=== PATIENT | male | born 1950 | race Caucasian/White ===

== ENCOUNTER → 2020-01-16 07:42 | Outpatient (CLI) | payer MEDICARE, SELFPAY ==
--- NOTE | ~2020-01-16 | US_ITS ---
EXAMINATION: US aorta [facility] DATE: 01/16/2020 08:07 INDICATION: Abdominal aortic aneurysm screening. TECHNIQUE: Grayscale, color Doppler, and pulsed Doppler images of the aorta and common iliac arteries were obtained. COMPARISON: None. FINDINGS: The aorta is normal in caliber. The right common iliac artery is normal in caliber. The left common i liac artery is normal in caliber. IMPRESSION: 1. No abdominal aortic aneurysm. Reviewed, dictated and finalized at location B. 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
--- NOTE | ~2020-01-16 | CT_ITS ---
EXAMINATION:CT lung screening DATE: 01/16/2020 08:16 INDICATION: Personal history of tobacco dependence. Current smoker with 40 pack year history. TECHNIQUE: Computed tomography (CT) of the chest was performed without intravenous contrast. Automate d exposure control and iterative reconstruction technique were employed. The dose-length product (DLP ) was 217.14 mGy-cm. COMPARISON: None. FINDINGS: There is mild emphysema. There is mild scarring at right lung apex. There is a 4 mm nodule in left upper lobe. No pleural effusion. The heart size is normal. There are coronary artery calcific ations. No pericardial effusion. There is mild thoracic spondylosis. IMPRESSION: 1. Lung-RADS category 2: Benign appearance or behavior. Continue annual screening with noncontrast lo w-dose chest CT in 12 months. Reviewed, dictated and finalized at location B. SCOUT IMPRESSION: 1. Lung-RADS category 2: Benign appearance or behavior. Continue annual screeni ng with noncontrast low-dose chest CT in 12 months.
== END ==
PROVIDERS: PCP Internal Medicine; Visit Provider Internal Medicine
DX: Z12.2 Encounter for screening for malignant neoplasm of respiratory organs (principal); Z87.891 Personal history of nicotine dependence
CPT/HCPCS: 76706; G0297

== ENCOUNTER → 2021-01-20 11:12 | Outpatient (CLI) | payer MEDICARE, SELFPAY ==
--- NOTE | ~2021-01-20 | CT_ITS ---
EXAMINATION:CT lung screening DATE: 01/20/2021 11:27 INDICATION: Personal history of nicotine dependence. Current smoker with 40 pack year history. TECHNIQUE: Computed tomography (CT) of the chest was performed without intravenous contrast. Automate d exposure control and iterative reconstruction technique were employed. The dose-length product (DLP ) was 110.28 mGy-cm. COMPARISON: Chest CT 01/16/2020 FINDINGS: There is mild emphysema. There is mild scarring at the lung apices. There is a 3 mm nodule in right middle lobe. 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 Again seen is a 4 mm nodule in left upper lobe. No pleural effusion. The heart size is normal. There are c oronary artery calcifications. No pericardial effusion. There is mild thoracic spondylosis. IMPRESSION: 1. Lung-RADS category 2: Benign appearance or behavior. Continue annual screening with noncontrast lo w-dose chest CT in 12 months. Reviewed, dictated and finalized at location A. 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 Lung-RADS category 2: Benign appearance or behavior. Continue annual screeni ng with noncontrast low-dose chest CT in 12 months.
== END ==
PROVIDERS: PCP Internal Medicine; Visit Provider Internal Medicine
DX: Z87.891 Personal history of nicotine dependence (principal)
CPT/HCPCS: 71271

== ENCOUNTER 2022-02-02 08:57 | Emergency (ER) | payer MEDICARE, SELFPAY ==
[2022-02-02 09:24] VITALS: BP 116/51; PULSE 60; RESP 20; TEMP 36.4; O2SAT 100
--- NOTE | 2022-02-02 10:06 | ED.URI ---
HPI - URI/Sore Throat General Chief Complaint: Upper Respiratory Infection Stated Complaint: Chest Congestion/Cough Time Seen by Provider: 02/02/22 10:06 Source: patient and RN notes reviewed Mode of arrival: ambulatory Limitations: no limitations History of Present Illness HPI Narrative: 71-year-old male presents with concern for 2 day history of sinus congestion and drainage. Reports he was unable to use his CPAP machine last night because his face was ?plugged up?. He denies fever, aches, chills, sweats, sore throat, cough. Reports he took Flonase with some relief MD elicited complaint: cough and sore throat Related Data Home Medications Medication Instructions Recorded Confirmed aspirin 81 mg tablet,delayed 81 mg PO DAILY 01/09/20 02/02/22 release cetirizine 10 mg tablet (Zyrtec) 10 mg PO DAILY PRN Allergy Symptoms 01/08/21 02/02/22 clonazepam 0.5 mg tablet 0.5 mg PO BID 01/08/21 02/02/22 venlafaxine 75 mg capsule,extended 75 mg PO DAILY 01/08/21 02/02/22 release 24 hr Allergies Allergy/AdvReac Type Severity Reaction Status Date / Time No Known Drug Allergies Allergy Unknown Verified 02/02/22 09:41 Review of Systems Review of Systems: CONSTITUTIONAL: Denies malaise, chills, sweats, or fever. EYES: Denies visual changes, redness, or discharge. ENT: Reports rhinorrhea, congestion. Denies sinus pain, otalgia and sore throat. CARDIOVASCULAR: Denies chest pain, palpitations, or edema. RESPIRATORY: Denies cough. Denies dyspnea. GASTROINTESTINAL: Denies abdominal pain, nausea, vomiting, diarrhea SKIN: Denies rash or itching. MUSCULOSKELETAL: Denies myalgia. NEUROLOGIC: Denies headache. All systems reviewed & are unremarkable except as noted in HPI and below PMFSH Family History Family History Grandparent Family history of heart disease in male family member before age 55 Social History Social History Smoking packs per day: 1 Smoking cigarettes per day: 20.0 Years smoked: 40 Smoking pack-years: 40.00 Smoking status: Current every day smoker (does not want to quit now due to being a difficult time) Tobacco type: cigarettes Second hand tobacco smoke exposure: Yes Alcohol intake: never Substance use: never Substance use type: does not use Comments At time of signature, agree with nursing past medical, surgical, social and family history. There is no relevant family history pertinent to the presenting complaint Exam Narrative: GENERAL: Well-appearing, well-nourished, and in no acute distress. HEAD: Normocephalic EYES: PERRLA, conjunctivae clear ENT: Nares clear, turbinates edematous and erythematous, clear discharge. Mucous membranes moist. TM pearly graves with sharp light reflex bilaterally; no tragal tenderness. Oropharynx not erythematous without lesions. Tonsils not enlarged and without exudate, no drooling, no hoarseness, no trismus, uvula midline. NECK: Supple. No lymphadenopathy CHEST: Clear to auscultation, breath sounds equal. No wheezing, rhonchi, rales, or stridor. No respiratory distress, speaks in full sentences. HEART: Regular rate and rhythm. No murmur heard. SKIN: Warm, dry, no rash. NEURO: Alert and oriented x3. PSYCH: Normal mood and affect Course Course Emergency Course: Patient is aware of diagnosis, understands and agrees to treatment plan. Anticipatory guidance given. Patient agrees to follow-up as directed and is aware of reasons to seek care at the emergency department. Portions of this record may have been created with voice recognition software Level of Care: Express Care Visit Vital Signs Vital signs: Vital Signs Temperature 97.5 F L 02/02/22 09:24 Pulse Rate 60 02/02/22 09:24 Respiratory Rate 20 02/02/22 09:24 Blood Pressure 116/51 L 02/02/22 09:24 Pulse Oximetry 100 02/02/22 09:24 Oxygen Delivery Room Air 02/02/22 09:24
== END 2022-02-02 10:15 | disposition home or self-care (01) ==
PROVIDERS: Emergency Provider Nurse Practitioner
DX: J06.9 Acute upper respiratory infection, unspecified (principal); F17.210 Nicotine dependence, cigarettes, uncomplicated; Z79.82 Long term (current) use of aspirin; G47.30 Sleep apnea, unspecified; E78.00 Pure hypercholesterolemia, unspecified; F41.9 Anxiety disorder, unspecified; F32.A Depression, unspecified
CPT/HCPCS: 87804; 99213; G0463

== ENCOUNTER 2023-01-31 12:07 | Outpatient (CLI) | payer MEDICARE, SELFPAY ==
[2023-01-31 19:42] LABS: Prostate Specific Antigen 12.9 ng/mL (< OR = 4.0)
[2023-01-31 19:52] LABS: Vitamin D 25 Hydroxy 52.1 ng/mL
[2023-01-31 22:08] LABS: Alanine Aminotransferase 27 U/L (6-50); Albumin Level 4.5 g/dL (3.5-5.1); Alkaline Phosphatase 61 U/L (38-126); Anion Gap 7 mmol/L (8-16); Aspartate Amino Transferase 59 U/L (17-59); Bilirubin,Total 0.4 mg/dL (0.2-1.3); Blood Urea Nitrogen 30 mg/dL (9-20); Calcium 9.8 mg/dL (8.4-10.2); Carbon Dioxide 30 mmol/L (22-30); Chloride 101 mmol/L (98-107); Estimated Glomerular Filt Rate 50; Potassium 4.6 mmol/L (3.4-5.0); Sodium 138 mmol/L (137-145)
[2023-01-31 22:56] LABS: Hemoglobin A1C 5.7 % (<5.7)
[2023-02-02 11:02] LABS: Glucose 41 mg/dL (65-110)
== END 2023-01-31 12:08 | disposition home or self-care (01) ==
LOC: ANHBWCLAB 12:09
PROVIDERS: PCP Family Medicine; Visit Provider Family Medicine
DX: R31.29 Other microscopic hematuria (principal); Z79.899 Other long term (current) drug therapy; R73.01 Impaired fasting glucose; I49.3 Ventricular premature depolarization; F41.9 Anxiety disorder, unspecified; F33.1 Major depressive disorder, recurrent, moderate; E78.2 Mixed hyperlipidemia; E55.9 Vitamin D deficiency, unspecified; G47.33 Obstructive sleep apnea (adult) (pediatric); Z12.5 Encounter for screening for malignant neoplasm of prostate
CPT/HCPCS: 36415; 80053; 82306; 83036; 84153; G0103